=== PATIENT | female | born 1990 | race Two or more races ===

== ENCOUNTER → 2016-09-18 | Outpatient (CLI) | payer BC ==
--- NOTE | 2016-10-07 15:26 | Diagnostic Imaging Report ---
Indications: Left breast nodule, status post biopsy, BI-RADS category 3, 6 month followup Technique: Real-time grayscale imaging of the retroareolar aspect of the left breast in prior nodule Findings: Comparison: None No nodule currently demonstrated. IMPRESSION: Apparent disappearance of previous left breast nodule BI-RADS category 3 Recommendation: Continued 6 month interval followup ultrasound examinations of the left breast
== END | disposition home or self-care (01) ==
LOC: ULS 12:25
DX: N63 Unspecified lump in breast (principal)